=== PATIENT | female | born 1945 | race Caucasian/White ===

== ENCOUNTER 2020-05-14 14:00 | Outpatient (CLI) | payer MEDICARE, SELFPAY ==
[2020-05-14 14:25] VITALS: BP 143/54; PULSE 62; RESP 16; TEMP 36.3; O2SAT 100; BMI 32.9
[2020-05-14 14:58] VITALS: BP 115/72; PULSE 71; RESP 16; TEMP 36.2; O2SAT 100
[2020-05-14 15:28] VITALS: BP 143/43; PULSE 66; RESP 14; TEMP 36.4; O2SAT 98
[2020-05-14 15:58] VITALS: BP 144/47; PULSE 67; RESP 16; TEMP 36.1; O2SAT 100
[2020-05-14 16:28] VITALS: BP 137/55; PULSE 66; RESP 14; TEMP 36.4; O2SAT 100
== END 2020-05-14 16:31 | disposition home or self-care (01) ==
LOC: MS2OUT 14:02 → MS2 14:03
PROVIDERS: PCP Internal Medicine; Referring Provider Nurse Practitioner Acute Care; Visit Provider Nurse Practitioner Acute Care
DX: U07.1 COVID-19 (principal)
CPT/HCPCS: 96365; J7050; M0239; Q0239